=== PATIENT | female | born 2000 | race Caucasian/White ===

== ENCOUNTER 2018-02-08 17:14 | Emergency (ER) | payer MEDICAID ==
[~2018-02-08] VITALS: Ht 154.9 cm; Wt 54.0 kg
[2018-02-08 17:19] VITALS: BP 116/67; Ht 154.9 cm; Wt 54.0 kg
== END 2018-02-08 17:57 | disposition home or self-care (01) ==
LOC: ED 17:14
DX: N89.8 Other specified noninflammatory disorders of vagina (principal)

== ENCOUNTER 2018-12-21 21:02 | Emergency (ER) | payer MEDICAID ==
[~2018-12-21] VITALS: Ht 157.5 cm; Wt 58.5 kg
[2018-12-21 21:08] VITALS: Ht 157.5 cm; Wt 58.5 kg
[2018-12-21 23:17] LABS: BASOPHIL % 0.4 % (0-2); PLATELET COUNT 387 x10^3mcL (130-400); RED CELL DISTRIBUTION WIDTH 13.3 % (11.5-14.5)
[2018-12-21 23:28] LABS: UA SPECIFIC GRAVITY 1.025 (1.005-1.035); microscopic required? YES; urine erythrocyte TRACE (NEGATIVE)
[2018-12-22 01:31] VITALS: BP 107/61
== END 2018-12-22 01:31 | disposition home or self-care (01) ==
LOC: ED 21:02
PROVIDERS: Emergency Medicine
DX: O23.41 Unspecified infection of urinary tract in pregnancy, first trimester (principal); F32.9 Major depressive disorder, single episode, unspecified; Z3A.08 8 weeks gestation of pregnancy
CPT/HCPCS: 36415

== ENCOUNTER 2020-01-26 04:48 | Emergency (ER) | payer MEDICAID ==
[~2020-01-26] VITALS: Ht 154.9 cm; Wt 62.1 kg
[2020-01-26 04:52] VITALS: Ht 154.9 cm; Wt 62.1 kg
[2020-01-26 05:33] LABS: UA SPECIFIC GRAVITY <=1.005 (1.005-1.035); microscopic required? YES; urine erythrocyte 3+ (NEGATIVE)
[2020-01-26 05:33] LABS: BASOPHIL % 0.3 % (0-2); PLATELET COUNT 393 x10^3mcL (130-400); RED CELL DISTRIBUTION WIDTH 12.7 % (11.5-14.5)
[2020-01-26 06:00] LABS: CALCIUM 9.7 mg/dL (8.5-10.1); CHLORIDE SERUM 100 mmol/L (98-107); CREATININE SERUM 0.6 mg/dL (0.6-1.0); GFR1 > 60 mL/min; GLUCOSE SERUM 111 mg/dL (74-106); POTASSIUM SERUM 3.5 mmol/L (3.5-5.1); SODIUM SERUM 136 mmol/L (136-145)
[2020-01-26 06:04] LABS: ALBUMIN 4.5 g/dL (3.4-5.0); ALKALINE PHOSPHATASE 88 U/L (46-116); ALT/SGPT 20 U/L (14-59); AMYLASE 86 U/L (25-115); AST/SGOT 11 U/L (15-37); BILIRUBIN TOTAL 0.44 mg/dL (0.20-1.00); LIPASE 88 IU/L (73-393); TOTAL PROTEIN, SERUM 8.1 g/dL (6.4-8.2)
[2020-01-26 07:02] VITALS: BP 102/54
== END 2020-01-26 07:02 | disposition home or self-care (01) ==
LOC: ED 04:48
PROVIDERS: Emergency Medicine
DX: N12 Tubulo-interstitial nephritis, not specified as acute or chronic (principal); N39.0 Urinary tract infection, site not specified
CPT/HCPCS: J0696; J1885; J2405; J7030